=== PATIENT | female | born 1955 | race Caucasian/White ===

== ENCOUNTER → 2019-04-24 10:02 | Outpatient (CLI) | payer BC ==
--- NOTE | 2019-04-30 10:41 | ST ---
PATIENT:JAMIE VILLEGAS MEDICAL RECORD: [id number] SEX: F LOCATION:[facility] ORDER #: ADMISSION DATE: 04/24/19 AGE OF PATIENT: 63 REFERRING PHYSICIAN: INTERPRETING PHYSICIAN: ADAL AWAD MD DATE OF SERVICE: 04/24/2019 INDICATION: Angina, coronary artery disease, abnormal ECG, hypertension, and hyperlipidemia. She was exercised on standard Esa protocol for 7 minutes 20 seconds achieving 85% maximum target heart rate response with 27 mCi of sestamibi injected at peak stress, 9 mCi used previously for rest images. FINDINGS: Gated SPECT reveals preserved ejection fraction at 76% with good wall motion and thickening and brightening throughout all segments. SPECT imaging Cardiolite was used as myocardial fusion agent. There is homogeneous uptake throughout all segments at rest and stress with no evidence of inducible ischemia or previous infarction. OVERALL IMPRESSION: 1. This is a normal nuclear stress test with no evidence of inducible ischemia or previous infarction. 2. Gated SPECT reveals a preserved ejection fraction at 76%. In this patient with ongoing symptomatology, the current scan does not suggest the presence of hemodynamically significant coronary artery disease. Evaluate noncardiac etiology of chest pain. TRANSINT:[id number] Voice Confirmation ID: [id number] DOCUMENT ID: [id number] ADAL AWAD MD at 1041 CC: CORTNEY GEORGE [id number] DICTATION DATE: 04/25/19 0822 WASHER OFF: 04/26/19 0234 DEP CLI 04/24/[address] [id number]
== END | disposition home or self-care (01) ==
LOC: D.HCCARDIO 10:02
PROVIDERS: ATTEND Internal Medicine Interventional Cardiology
DX: I20.9 Angina pectoris, unspecified (principal)